=== PATIENT | male | born 2000 | race Caucasian/White ===

== ENCOUNTER 2019-06-21 18:47 | Emergency (ER) | payer SELFPAY ==
[2019-06-21] MEDS ORDERED: EPINEPHrine 1 MG/10 ML SYR IV ONE (18:48)
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
== END 2019-06-21 20:27 ==
LOC: ER 18:47 → EDBD 18:47 → ER 20:27
PROC: 5A12012 Performance of Cardiac Output, Single, Manual (ICD-10-PCS; principal; 2019-06-21)
PROC: 0BH17EZ Insertion of Endotracheal Airway into Trachea, Via Natural or Artificial Opening (ICD-10-PCS; 2019-06-21)
PROC: 5A1935Z Respiratory Ventilation, Less than 24 Consecutive Hours (ICD-10-PCS; 2019-06-21)
DX: R09.2 Respiratory arrest (principal); T75.1XXA Unspecified effects of drowning and nonfatal submersion, initial encounter; W69.XXXA Accidental drowning and submersion while in natural water, initial encounter; Y93.11 Activity, swimming; Y92.832 Beach as the place of occurrence of the external cause
CPT/HCPCS: 31500; 82947; 92950; 96374; 99285; J0171